=== PATIENT | female | born 1970 | race Caucasian/White ===

== ENCOUNTER 2019-10-09 17:45 | Emergency (ER) | payer MEDICAID ==
[~2019-10-09] VITALS: Ht 160 cm; Wt 78.2 kg
[~2019-10-09 17:45] MED LIST: HYD25 PO; IBUP-2070 PO; ISON300 PO; OMEP20 PO; PYRI50 PO; VITA200C75 PO
[2019-10-09] MEDS ORDERED: PROP40TA7 PO (18:12)
[2019-10-09] MEDS ORDERED: IBUPROFEN 400 MG TABLET PO ONE (19:45)
[2019-10-09 20:50] VITALS: BP 138/81
== END 2019-10-09 20:57 | disposition home or self-care (01) ==
LOC: EMS 17:51
DX: S93.602A Unspecified sprain of left foot, initial encounter (principal); I10 Essential (primary) hypertension; W19.XXXA Unspecified fall, initial encounter; Y93.01 Activity, walking, marching and hiking; Y92.89 Other specified places as the place of occurrence of the external cause; Y99.8 Other external cause status